=== PATIENT | male | born 1995 | race Two or more races ===

== ENCOUNTER 2017-02-14 23:48 | Emergency (ER) | payer MEDICAID ==
[~2017-02-14] VITALS: Ht 165.1 cm; Wt 70.3 kg
[2017-02-15 00:09] VITALS: BP 123/71
--- NOTE | 2017-02-15 00:27 | Emergency Room Report ---
History of Present Illness General Chief Complaint: Male Urogenital Problems Source: Patient Present Illness HPI Patient with pain and some lesions at urethra this afternoon. Now slightly better, but lesions still present. No dysuria, hematuria, lymph node swelling or pain. Has one sexual partner and has unprotected sex. Denies HIV, fevers, NVD, other rashes, joint pain, URI sy. His mother suggested this was and STD. Allergies: Coded Allergies: No Known Allergies (Unverified , 02/15/17) Patient History Past Medical History: see triage record Social History: Denies: smoking Social History Narrative here with girlfriend Review of Systems All Other Systems: negative except mentioned in HPI Physical Exam Vital Signs Date Time Temp Pulse Resp B/P (MAP) Pulse Ox O2 Delivery O2 Flow Rate FiO2 02/14/17 23:59 98.1 58 18 123/71 98 Room Air General Appearance: well appearing, no apparent distress Head: normocephalic, atraumatic ENT: hearing grossly normal, normal voice Neck: full range of motion, supple Respiratory: no respiratory distress, speaking full sentences Gastrointestinal: normal inspection, normal bowel sounds, non tender, scaphoid Genitourinary: other - lesions bilateral urethral opening with min erythema. No d/c. No vesicles Musculoskeletal: no calf tenderness Neurologic: alert, normal gait, grossly normal Psychiatric: mood/affect normal Skin: no rash, other - see genitals Lymphatic: no adenopathy Medical Decision Making Diagnostic Impression: Primary Impression: Penile inflammation Additional Impression: UTI (urinary tract infection) Qualified Codes: N39.0 - Urinary tract infection, site not specified ER Course Patient presents with urethral lesions. DDx: STD, inflammation, balanitis amongst others. Low suspicion for STD by presentation and exam however, will send UA and tests as well as treat. UA with pyuria. Discussed need for follow up with urologist or PMD. Patient stable for outpatient observation and treatment. Laboratory Tests Test 02/15/17 00:03 Urine Color Yellow Urine Appearance Clear Urine pH 6 (4.5-8.0) Urine Specific [place] 1.020 (1.005-1.035) Urine Protein Negative (NEGATIVE) Urine Glucose (UA) Negative (NEGATIVE) Urine Ketones Negative (NEGATIVE) Urine Occult Blood Negative (NEGATIVE) Urine Nitrite Negative (NEGATIVE) Urine Bilirubin Negative (NEGATIVE) Urine Urobilinogen Normal MG/DL (0.0-1.0) Urine Leukocyte Esterase 2+ (NEGATIVE) H Urine RBC 0-2 /HPF (0 - 0) H Urine WBC 40-60 /HPF (0 - 0) H Urine Squamous Epithelial Cells None /LPF (NONE/OCC) Urine Bacteria Few /HPF (NONE) Last Vital Signs Date Time Temp Pulse Resp B/P (MAP) Pulse Ox O2 Delivery O2 Flow Rate FiO2 02/15/17 00:57 57 20 115/83 98 Room Air 02/15/17 00:09 98.1 Status: improved Disposition: HOME, SELF-CARE Condition: Improved Scripts Bacitracin (Bacitracin) 28.4 Gm Oint...g. 1 APPLIC TOPIC BID, #10 GM Prov: John Stone M.D. 02/15/17 Doxycycline Monohydrate* (DOXYCYCLINE MONOHYDRATE*) 100 Mg Capsule 100 MG ORAL Q12H, #14 CAP 0 Refills Prov: John Stone M.D. 02/15/17 John Stone M.D. Feb 15, 2017 00:26
[2017-02-15] MEDS ORDERED: DOXYCYCLINE MO100 MG ORAL (00:28)
[2017-02-15] MEDS ORDERED: BACITRACIN15 GM TOPIC (00:28)
[2017-02-15 00:30] LABS: APPEARANCE,URINE CLEAR; KETONES,URINE NEGATIVE (NEGATIVE); LEUKOCYTE ESTERASE ,URINE 2+ (NEGATIVE); NITRITE,URINE NEGATIVE (NEGATIVE); PH,URINE 6 (4.5-8.0); PROTEIN,URINE NEGATIVE (NEGATIVE); UROBILINOGEN,URINE NORMAL MG/DL (0.0-1.0)
[2017-02-15 00:57] VITALS: BP 115/83
[2017-02-15 00:58] LABS: BACTERIA,URINE FEW /HPF; RBC,URINE 0-2 /HPF (0 - 0); WBC,URINE 40-60 /HPF (0 - 0)
== END 2017-02-15 00:59 | disposition home or self-care (01) ==
LOC: EMR 02-15 00:11
DX: N48.29 Other inflammatory disorders of penis (principal); N39.0 Urinary tract infection, site not specified
CPT/HCPCS: 81003; 87086; 96372; 99283; J0696